=== PATIENT | female | born 1940 | race Two or more races ===

== ENCOUNTER 2021-08-05 11:54 | Emergency (ER) | payer OTHER ==
[~2021-08-05] VITALS: Ht 157.5 cm; Wt 86.2 kg
== END 2021-08-05 14:16 | disposition home or self-care (01) ==
LOC: ER 11:54
DX: S50.02XA Contusion of left elbow, initial encounter (principal); M12.522 Traumatic arthropathy, left elbow; W18.09XA Striking against other object with subsequent fall, initial encounter; Y93.89 Activity, other specified; Y92.238 Other place in hospital as the place of occurrence of the external cause; Y99.8 Other external cause status